=== PATIENT | male | born 1980 | race Caucasian/White ===

== ENCOUNTER → 2019-10-25 | Outpatient (CLI) | payer OTHER ==
--- NOTE | 2019-10-25 16:47 | CONS ---
CONSULTATION REASON FOR CONSULTATION: Sleep apnea. This is a 38-year-old male patient who was originally diagnosed having obstructive sleep apnea based on a sleep study that was done in 2011 at [facility]. At that time the patient was diagnosed having mild BAYLEE with an AHI of 6. Despite his mild sleep apnea, the patient was placed on an APAP mode. Currently he has a ResMed S9 series which is being utilized at a pressure minimum of 4 and maximum of 20. He has done extremely well over the years and he is coming in for reevaluation and checkup, knowing that he has not had any evaluation for the past 8 years. I checked his machine, which is functional. The humidification chamber needs to be replaced. His mask needs to be replaced, as the patient is using a Mirage Quattro full-face mask. Based on the compliance data, the patient has been utilizing his CPAP machine every night. CPAP use for the past 30 days was 100% for more than 4 hours, averaging around 7.1 hours per night at an average pressure of 8.2 cm of water. The leak is quite extensive at L/minute. Nevertheless his AHI is down to 0.7. The patient continues to benefit from the treatment. No recent weight gain or weight loss. He goes to bed around 10 to 11 p.m. and gets up between 7 and 8 a.m. in the morning. Snoring has subsided. He needs new supplies; masks, filters and heated tubings. No sleep paralysis. No hallucinations. No cataplexy. No other new medical problems or comorbidities. PAST MEDICAL HISTORY: Sleep apnea. SURGICAL HISTORY: Negative. DRUG ALLERGIES: NONE. MEDICATIONS: None. SOCIAL HISTORY: Nonsmoker. No history of alcoholism. No history of IV drugs. FAMILY HISTORY: Negative for sleep apnea. REVIEW OF SYSTEMS: Fourteen-point review of systems was done. Positive findings were all mentioned above in the history of present illness. PHYSICAL EXAMINATION: VITAL SIGNS: BP is 140/83, pulse 82, respirations 16, temperature 98.0, saturation 98% on room air. Height is 6 feet 0 inches, weight 280. Neck size 17-3/4 inches. BMI 37.9. GENERAL APPEARANCE: Calm, comfortable. HEAD: Atraumatic, normocephalic. NECK: Supple. No JVD. No goiter or neck masses. Mallampati class IV. LUNGS: Clear to auscultation. HEART: Heart sounds are regular rate and rhythm. Normal S1, S2. No S3, S4. No murmurs. ABDOMEN: Soft, nontender. No organomegaly. EXTREMITIES: No edema. No cyanosis or clubbing. NEUROLOGIC: Awake and alert. No focal neurological deficits. PSYCHIATRIC: Negative for anxiety or depression. SKIN: Negative for any wounds or ulceration. IMPRESSION: 1. Obstructive sleep apnea, mild yet successfully treated with CPAP therapy with excellent clinical response and compliancy. The patient is currently receiving CPAP in the APAP mode with a minimum pressure of 4 maximum pressure of 20. The patient's baseline AHI is between 5 and 6 based on the sleep study that was done at [facility] back in 2011. Successful treatment for now. 2. Obesity; body mass index of 37.9. 3. Hypersomnia, improved. PLAN: 1. Continue APAP in the same mode. 2. Offer the patient a new humidification chamber. 3. Offer the patient heated tubing. 4. Switch this patient to an AirFit F20 large-sized full-face mask. 5. Replace the filters and the tubing. 6. See me back in a year's time. No need for any studies at this point in time. His machine is functional and I will continue to maintain the same equipments for the time being. MMELOISAL / IJN: [id number] /
== END | disposition home or self-care (01) ==
LOC: SLEEP 13:33
PROVIDERS: ATTEND Internal Medicine Critical Care Medicine
DX: G47.33 Obstructive sleep apnea (adult) (pediatric) (principal); G47.10 Hypersomnia, unspecified; E66.9 Obesity, unspecified; Z68.37 Body mass index [BMI] 37.0-37.9, adult; Z99.89 Dependence on other enabling machines and devices
CPT/HCPCS: 99211

== ENCOUNTER → 2021-04-16 | Outpatient (CLI) | payer OTHER ==
--- NOTE | 2021-04-16 14:33 | PN ---
PROGRESS NOTE Nigel is 40, coming in regarding sleep apnea. The patient was diagnosed having BAYLEE back in 2011 through a sleep study that was done in [facility]. At that time, the patient had an AHI of 6. Since then, the patient has been extremely compliant with APAP unit which is a ResMed F9 series, APAP mode at a pressure minimum of 4, maximum of 20. His last evaluation was with me back in October of 2019. At that time, he was utilizing the machine effectively. Over this past 2 years, he continued to be very compliant with CPAP treatment and his current machine is getting old and the motor lasted its exceeded life span. Based on my review, the patient's AHI is down to 1 while on treatment and yet the patient has been averaging around 7.9 hours of APAP use per night and he is using an AirFit F20 full-face mask, large size. He has gained weight. He used to weigh around 280. He is currently is up to 293. No major leaks around the mask. No hypersomnia or sleepiness. In fact, he is also interested in purchasing a portable CPAP unit for travelling purposes and ones that are operated by battery. No new complaints. No new onset comorbidities. He likes his fullface mask which is an AirFit of 20. No nocturnal dyspnea, chest pain, shortness of breath. No heartburn. No major hypersomnia or sleepiness. No other comorbidities otherwise. MEDICATIONS: None. REVIEW OF SYSTEMS: Fourteen-point review of system was done. Positive findings are mentioned in history of present illness. ALLERGIES: Not known. PHYSICAL EXAMINATION: VITAL SIGNS: BP 137/84, pulse 80, respirations 16, temperature 97.5. Saturation 95% on room air. Height is 6 feet, 0, weight is 93, BMI 39.7. Jarrell score is at 6. General appearance: Calm, comfortable. Head is atraumatic, normocephalic. Neck is supple. There is no JVD. No goiter or neck masses. Lungs diminished breath sounds bilaterally otherwise clear. Heart sounds are regular rate and rhythm. Normal S1/S2. No S3. No murmurs. Abdomen soft, nontender. No organomegaly. Extremities: No edema. No cyanosis or clubbing. Neurologically: Awake and alert. There is no focal neurological deficits. Psychiatric: Negative for anxiety or depression. IMPRESSION: 1. Obstructive sleep apnea, currently on a APAP pressure of minimum of 4, maximum of 20. The patient is in need for a new CPAP unit. His current CPAP unit has exceeded its life span. He is also interested in a portable CPAP unit for traveling purposes. 2. Obesity with interval weight gain. Current body mass index is up to 39.7. 3. Hypersomnia recovered with CPAP therapy. PLAN: We will set up the patient for a home sleep study to reestablish diagnosis of sleep apnea. He may be able also to use his older CPAP unit older polysomnogram that was done in 2011. I am going to go ahead and order a new CPAP unit which will be a ResMed AutoSet unit, pressure minimum of 5, maximum of 20 with an AirFit N20 fullface mask large size mask interface. Encourage weight loss. Implement good sleep hygiene measures. We will order a CPAP unit. The patient will see me back in 30 to 90 days after obtaining his CPAP machine for a compliancy check. We will continue to follow and further adjustments will be done based on his overall clinical response. MMLUIS ARMANDO / BELLA: [id number] / MTDAline
== END ==
LOC: SLEEP 12:59
PROVIDERS: ATTEND Internal Medicine Critical Care Medicine
DX: G47.33 Obstructive sleep apnea (adult) (pediatric) (principal); E66.9 Obesity, unspecified; Z68.39 Body mass index [BMI] 39.0-39.9, adult

== ENCOUNTER → 2021-07-30 | Outpatient (CLI) | payer OTHER ==
--- NOTE | 2021-07-30 20:03 | PN ---
PROGRESS NOTE This patient is 40, seeing me for a followup regarding his obstructive sleep apnea. The patient was given a CPAP machine, and this is a ResMed CPAP unit which is an APAP unit at a pressure minimum of 5 and maximum of 20. Baseline AHI was 6.0, yet the patient was symptomatic. It seems that the patient is benefitting from the treatment. I checked the compliancy data. The patient has been averaging around 7.5 hours of CPAP use per night, and his CPAP usage for more than 4 hours is 100%. His average pressure delivered by the machine is around 9.1 with a leak of 60 L/minute and his AHI is down to 2. Current [place] score is 8. He is waking up refreshed and alert during the day. He is using the AirFit F20 full-face mask, large size. He has no complaints otherwise for now. REVIEW OF SYSTEMS: Fourteen-point review of systems was done. Positive findings are all mentioned above in the history of present illness. Otherwise negative. PHYSICAL EXAMINATION: BP is 122/79, pulse 79, respirations 12, temperature 97.5, weight is 297. Saturation is 95% on room air. [place] score is 8. GENERAL APPEARANCE: Calm, comfortable. HEAD: Atraumatic, normocephalic. Neck is supple. No JVD. No goiter or neck masses. Mallampati class IV. LUNGS: Clear to auscultation. Heart sounds are regular rate and rhythm. Normal S1, S2. No S3, S4. No murmurs. ABDOMEN: Soft, nontender. No organomegaly. EXTREMITIES: No edema. No cyanosis or clubbing. IMPRESSION: 1. Symptomatic obstructive sleep apnea. AHI of 6. Currently on APAP with excellent clinical response and compliancy. 2. Hypersomnia, improved. 3. Obesity. PLAN: 1. Encourage weight loss. 2. Continue APAP therapy at the same pressure setting. 3. Keep the patient on an AirFit F20 full-face mask, large size. 4. Clinically he is improved. Compliance data was checked. No need for any further adjustments. See me back in a year's time in followup, earlier if needed. Treatment is successful for now. MMODL / IJN: [id number] /
== END ==
LOC: SLEEP 13:28
PROVIDERS: ATTEND Internal Medicine Critical Care Medicine
DX: G47.33 Obstructive sleep apnea (adult) (pediatric) (principal); E66.9 Obesity, unspecified; Z99.89 Dependence on other enabling machines and devices

== ENCOUNTER → 2022-07-22 | Outpatient (CLI) | payer OTHER ==
--- NOTE | 2022-07-22 16:32 | P.PN ---
Subjective Progress Note Date: 07/22/22 41-year-old male patient was being seen for a compliance check regarding his obstructive sleep apnea. The patient currently has a APAP unit pressures of 5/20. On today's evaluation, the patient has no specific complaints. He is utilizing his airfit F 20 fullface mask without any major difficulties and he has a large size mask. I did a compliance check on his machine. The patient is utilizing his machine every night and he is using the machine for more than 4 hours 30 over 30. The patient has been averaging about 6.6 hours of APAP use per night. Average pressure delivered by the machines around 11.6 cm of water and the patient has a leak of 23 L/m and his AHI while in treatment is also 0.7. His weight was 297 approximately year ago and currently is up to 304. No new onset comorbidities P no major hypersomnia or sleepiness. Is well treated. He is not falling asleep while driving his car. No nighttime chest pain or shortness of breath or heartburn. No other new complaints otherwise for now. His treatment is successful. His machine is functional. Objective - Exam BP is 130/76 with a pulse of 69 and a respiration of 16 with a temperature of 97.3 and a pulse ox of 96% on room and oxygen. The patient appeared well nourished and normally developed. Vital signs as documented. Head exam is unremarkable. No scleral icterus or corneal arcus noted. Neck is without jugular venous distension, thyromegaly, or carotid bruits. Carotid upstrokes are brisk bilaterally. Lungs are clear to auscultation and percussion. Cardiac exam reveals the PMI to be normally sized and situated. Rhythm is regular. First and second heart sounds normal. No murmurs, rubs or gallops. Abdominal exam reveals normal bowel sounds, no masses, no organomegaly and no aortic enlargement. Extremities are nonedematous and both femoral and pedal pulses are normal.Examination of the skin revealed no evidence of significant rashes, suspicious appearing nevi or other concerning lesions.Neurologically, the patient is awake and alert and the patient does not have any focal neurological deficit. Cranial nerves are essentially intact. Assessment and Plan Plan: Obstructive sleep apnea, successfully treated with APAP at a pressure of 5/20 and the treatment has been extremely successful with excellent compliance data Hypersomnia, recovered Obesity with ongoing weight gain, current body weight is up to 304 No major comorbidities Plan Continue CPAP therapy the same level of pressure. Keep the same mask interface. Encourage weight loss. Sleep hygiene measures. Maintain a regular sleep schedule. Refills will be given and the patient will see him back in one year's time and follow.
== END ==
LOC: SLEEP 15:21
PROVIDERS: ATTEND Internal Medicine Critical Care Medicine
DX: G47.33 Obstructive sleep apnea (adult) (pediatric) (principal); E66.9 Obesity, unspecified; Z99.89 Dependence on other enabling machines and devices